=== PATIENT | female | born 1980 | race Caucasian/White ===

== ENCOUNTER 2018-03-09 15:51 | Emergency (ER) | payer OTHER ==
[~2018-03-09] VITALS: Ht 175.3 cm; Wt 68.0 kg
--- NOTE | 2018-03-09 16:00 | NUR ---
PATIENT WAS MSE BY DR MAGALLANES IN ROOM 02B.
[2018-03-09 16:11] VITALS: BP 114/68
--- NOTE | 2018-03-09 16:12 | NUR ---
Patient discharged to home in stable conditon. Written and verbal after care instructions given. Patient verbalizes understanding of instructions.
== END 2018-03-09 16:14 | disposition home or self-care (01) ==
LOC: ER 15:53
DX: F41.9 Anxiety disorder, unspecified (principal)
CPT/HCPCS: A4663